=== PATIENT | male | born 1935 | race American Indian/Alaskan Native ===

== ENCOUNTER 2017-08-28 22:29 | Emergency (ER) | payer MEDICARE ==
[~2017-08-28 22:29] MED LIST: ADRENALIN ONE; CORDARONE IV ONE; SODIUM BICARBONATE IV ONE; XYLOCAINE CARDIAC IV ONE
--- NOTE | 2017-08-28 22:43 | Emergency Department Report ---
HPI - General Time Seen by Provider: 08/28/17 22:38 - HPI HPI: Room 20 The patient is an 82-year-old male presenting with a chief complaint of cardiac arrest. Per EMS they received a call for cardiac arrest and arrived at the patient's home at 21:43 to find the patient in fine V. fib. Patient was defibrillated once and his rhythm changed to asystole. Patient remained in asystole for EMS until transport to the ED. Patient was intubated with a Combitube and administered 3 rounds of epinephrine and one round of sodium bicarbonate prior to arrival. Upon arrival to the ED the patient's Combitube was removed and the patient was intubated with an ET tube by myself. ACLS protocols continued, but there was no return of spontaneous circulation Location: Cardiovascular system Duration: [See above] Quality: Cardiac arrest Severity: Severe Modifying factors: [see above] Context: [see above] Mode of transportation: [not driving] ED Past Medical Hx - Past Medical History Hx of Cancer: Yes (prostate CA) Additional medical history: Graves' disease - Family History Family history: no significant - Social History Smoking Status: Unknown if ever smoked ED Review of Systems ROS: Stated complaint: CARDIAC ARREST Other details as noted in HPI Comment: Unobtainable due to pts medical conditions Physical Exam - Physical Exam Physical Exam: GENERAL: The patient is well-developed thin elderly male lying on stretcher being bagged via Combitube and receiving chest compressions from EMS HEENT: Normocephalic. Atraumatic. NECK: Trachea midline CHEST/LUNGS: No spontaneous respirations. Breath sounds equal bilaterally after intubation and bagging HEART/CARDIOVASCULAR: No heart sounds. ABDOMEN: There is no abdominal distention. SKIN: There is no diaphoresis. NEURO: GCS 3T MUSCULOSKELETAL: There is no evidence of acute injury. - Intubation Time Out Performed: No Sedative: none Laryngoscope: Gayla Size: 3 ET Tube Size: 8 Tube Secured Depth (cm): 24 Tube Secured Location: lips Tube Placement Confirmation: equal breath sounds bilat, no breath sounds over epi Patient Tolerated Procedure: no complications Intubation Complications: none ED Medical Decision Making - Differential Diagnosis cardiac arrest Critical care attestation.: If time is entered above; I have spent that time in minutes in the direct care of this critically ill patient, excluding procedure time. ED Disposition Clinical Impression: Cardiac arrest Disposition: DC-20 Is pt being admited?: No Does the pt Need Aspirin: No Condition: Poor Time of Disposition: 22:43 (patient )
== END 2017-08-29 02:37 ==
LOC: ED 22:29
DX: I46.9 Cardiac arrest, cause unspecified (principal); C61 Malignant neoplasm of prostate
CPT/HCPCS: 31500; 99285; J0171; J0282; J2001